=== PATIENT | female | born 1960 | race Caucasian/White ===

== ENCOUNTER 2017-03-08 22:40 | Emergency (ER) | payer SELFPAY ==
[2017-03-08 23:04] VITALS: TEMP 98
[2017-03-08] MEDS ORDERED: Sodium Chloride 0.9% 1,000 ML IV ONE (23:17)
--- NOTE | 2017-03-08 23:20 | C.PDOC ---
History Of Present Illness 56 year old female who presents to the ER with a complaint of tenderness to the left clavicular area for the past 5 days. Patient has not taken anything for the past; denies Hx of breath cancer, cough, recent fall, or SOB. Time Seen by Provider: 03/08/17 23:06 Chief Complaint (Nursing): Chest Pain History Per: Patient History/Exam Limitations: no limitations Onset/Duration Of Symptoms: Days Current Symptoms Are (Timing): Still Present Associated Symptoms: denies: Nausea, Dyspnea, Diaphoresis, Syncope Modifying Factors: None Exacerbating Factors: None Alleviating Factors: None Recent travel outside of the [place]: No Past Medical History Reviewed: Historical Data, Nursing Documentation, Vital Signs Vital Signs: Last Vital Signs Temp 98.0 F 03/08/17 22:56 Pulse 54 L 03/08/17 23:17 Resp 20 03/08/17 22:56 BP 143/51 L 03/08/17 23:17 Pulse Ox 100 03/09/17 01:15 - Medical History PMH: HTN Surgical History: No Surg Hx Family History: States: Unknown Family Hx - Social History Hx Alcohol Use: No Hx Substance Use: No - Immunization History Hx Tetanus Toxoid Vaccination: No Hx Influenza Vaccination: No Hx Pneumococcal Vaccination: No Review Of Systems Constitutional: Negative for: Fever, Chills Cardiovascular: Negative for: Chest Pain, Palpitations Respiratory: Negative for: Cough, Shortness of Breath Musculoskeletal: Positive for: Other (Pain to left clavicular area) Neurological: Negative for: Weakness, Numbness Physical Exam - Physical Exam Appears: Non-toxic, No Acute Distress Skin: Normal Color, Warm, Dry Head: Atraumatic, Normacephalic Oral Mucosa: Moist Neck: Normal, Supple Lymphatic: Adenopathy (to right posterior cervical area, 2 to left anterior clavicular area), No Axilla Node Tenderness Chest: Symmetrical Cardiovascular: Rhythm Regular, No Murmur Respiratory: Normal Breath Sounds, No Rales, No Rhonchi, No Wheezing Gastrointestinal/Abdominal: Soft, No Tenderness Neurological/Psych: Oriented x3, Normal Speech, Normal Cognition ED Course And Treatment - Laboratory Results Result Diagrams: 03/08/17 23:34 03/08/17 23:34 Lab Interpretation: Normal (no lymphocytosis, UA 30 wbc's neg nitrite, TSH neg, d-dimer neg, bnp/trop neg.) ECG: Interpreted By Me ECG Rhythm: Sinus Rhythm ECG Interpretation: Normal Rate From EC O2 Sat by Pulse Oximetry: 100 (Room air) Pulse Ox Interpretation: Normal - Radiology CXR: Interpreted by Me CXR Interpretation: Yes: No Acute Disease, Other (? density RUL area, CT pending.) Progress Note: CT chest, EKG, blood work, CXR, and urinalysis ordered. Toradol and IV fluids administered. Reevaluation Time: 00:59 Reassessment Condition: Improved Medical Decision Making Medical Decision Making: L clavicular AUDELIA of ? etiology labs wnl CT pending 0100: signed over to Dr. Alberts, overnight to f/u CT and d/w family for d/c Disposition - Disposition Disposition Time: 01:00 Condition: GOOD Forms: [facility] (Lithuanian) - Clinical Impression Clinical Impression: Lymphadenopathy of head and neck - Scribe Statement The provider has reviewed the documentation as recorded by the Scribe Don Jade All medical record entries made by the Scribe were at my direction and personally dictated by me. I have reviewed the chart and agree that the record accurately reflects my personal performance of the history, physical exam, medical decision making, and the department course for this patient. I have also personally directed, reviewed, and agree with the discharge instructions and disposition. Physician Patient Turnover Patient Signed Over To: Juancarlos Alberts Handoff Comments: f/u CT and dispo appropriately. labs wnl
[2017-03-08 23:37] LABS: BASO % 0.8 % (0.0-2.0); EOS # 0.2 K/uL (0.0-0.7); EOS % 3.1 % (0.0-4.0); LYMPH # 1.8 K/uL (1.0-4.3); LYMPH % 33.5 % (20.0-40.0); MEAN CELL VOLUME 90.8 fL (81.0-99.0); MEAN CORPUSCULAR HEMOGLOBIN 31.3 pg (27.0-31.0); MEAN CORPUSCULAR HGB CONC 34.5 g/dL (33.0-37.0); MEAN PLATELET VOLUME 8.3 fL (7.2-11.7); MONO # 0.4 K/uL (0.0-0.8); MONO % 7.9 % (0.0-10.0); NRBC % 0.1 % (0.0-2.0); RED CELL DISTRIBUTION WIDTH 12.5 % (11.5-14.5); WHITE BLOOD COUNT 5.2 K/uL (4.8-10.8)
[2017-03-08 23:45] LABS: PARTIAL THROMBOPLASTIN TIME 25 SECONDS (21-34)
[2017-03-08 23:59] LABS: CHLORIDE 100 mmol/L (98-107); POTASSIUM 3.9 mmol/L (3.6-5.2); SODIUM 138 mmol/L (132-148)
[2017-03-09 00:01] LABS: BILIRUBIN,TOTAL 0.8 mg/dL (0.2-1.3); CARBON DIOXIDE 26 mmol/L (22-30); GFR AFRICAN-AMERICAN > 60
[2017-03-09 00:02] LABS: ALB/GLOB RATIO 1.1 (1.0-2.1); ALKALINE PHOSPHATASE 88 U/L (38-126); ALT/SGPT 25 U/L (9-52); AST/SGOT 22 U/L (14-36); BLOOD UREA NITROGEN 13 mg/dL (7-17); CALCIUM 9.1 mg/dl (8.6-10.4); GLUCOSE,RANDOM 157 mg/dL (65-105); TOTAL PROTEIN 8.1 g/dL (6.3-8.3)
[2017-03-09] MEDS ORDERED: Sodium Chloride 0.9% 1,000 ML ONE (00:06)
[2017-03-09 00:33] LABS: THYROID STIMULATING HORMONE 0.93 mIU/L (0.46-4.68)
[2017-03-09 00:34] LABS: URINE BILIRUBIN NEGATIVE (NEGATIVE); URINE BLOOD 1+ (NEGATIVE); URINE COLOR Colorless (YELLOW); URINE GLUCOSE (UA) NORMAL (Normal); URINE KETONE NEGATIVE (NEGATIVE); URINE LEUKOCYTE ESTERASE 3+ Leu/uL (Negative); URINE PROTEIN NEGATIVE (NEGATIVE); URINE UROBILINOGEN NORMAL mg/dL (0.2-1.0); WBC URINE 30 /hpf (0-5)
[2017-03-09 00:36] LABS: RBC URINE 5 /hpf (0-3)
[2017-03-09] MEDS ORDERED: Iodixanol 320 MG/ML 100 ML BOTTLE IV ONE (00:53)
--- NOTE | 2017-03-09 02:42 | CT ---
EXAM: CT Chest With Intravenous Contrast EXAM DATE/TIME: 03/08/2017 11:17 PM CLINICAL HISTORY: 56 years old, female; Pain; Other: Lt clavicular; Additional info: L clavicular salvador, ? etiology TECHNIQUE: Axial computed tomography images of the chest with intravenous contrast. All CT scans at this facility use one or more dose reduction techniques, viz.: automated exposure control; ma/kV adjustment per patient size (including targeted exams where dose is matched to indication; i.e. head); or iterative reconstruction technique. Coronal and sagittal reformatted images were created and reviewed. CONTRAST: 100 mL of VISI administered intravenously. COMPARISON: No relevant prior studies available. FINDINGS: The left clavicular region appears normal. There are no osseous abnormalities. The overlying musculature and subcutaneous fat appear normal. Accessory azygos fissure is noted in the right upper lung. No pulmonary embolism. No aortic dissection or aneurysm. No pleural or pericardial effussions. No pulmonary consolidation. The visualized portions of the upper abdomen appear normal. IMPRESSION: No acute findings.
[2017-03-09 03:02] VITALS: BP 124/79; PULSE 83; RESP 17; O2SAT 99
--- NOTE | 2017-03-09 13:22 | RAD ---
PROCEDURE: CHEST RADIOGRAPH, 1 VIEW HISTORY: SOB COMPARISON: None available. FINDINGS: LUNGS: No pulmonary infiltrate. Incidentally noted azygos fissure. Nodular opacity in right upper lobe is the azygos vein traveling within the azygos fissure. PLEURA: No pneumothorax or pleural fluid seen. CARDIOVASCULAR: Normal. OSSEOUS STRUCTURES: No significant abnormalities. VISUALIZED UPPER ABDOMEN: Normal. OTHER FINDINGS: None. IMPRESSION: No active disease.
--- NOTE | 2017-03-11 12:28 | CARD ---
APPROVED REPORT EKG Measurement Heart [id number] [id number] <Conclusion> Normal sinus rhythm Nonspecific ST and T wave abnormality Abnormal ECG
== END 2017-03-09 03:02 | disposition home or self-care (01) ==
LOC: C.ER 22:40
DX: R59.1 Generalized enlarged lymph nodes (principal)
CPT/HCPCS: 71010; 71260; 80053; 81001; 83880; 84443; 84484; 85025; 85378; 85610; 85730; 87086; 93005; 96361; 96374; 99284; J1885; J7040; Q9967